=== PATIENT | female | born 1950 | race Caucasian/White ===

== ENCOUNTER → 2017-02-04 | Outpatient (CLI) | payer OTHER | LOC: BMCIMAGING 16:00 | PROVIDERS: ATTEND Internal Medicine | DX: M51.36 Other intervertebral disc degeneration, lumbar region (principal) ==

== ENCOUNTER → 2017-03-12 | Outpatient (CLI) | payer OTHER | LOC: FIMAGING 07:40 | PROVIDERS: ATTEND Internal Medicine | DX: Z12.31 Encounter for screening mammogram for malignant neoplasm of breast (principal) | CPT/HCPCS: G0202 ==

== ENCOUNTER → 2017-09-06 | Outpatient (CLI) | payer OTHER | LOC: BIMAGING 15:22 | PROVIDERS: ATTEND Internal Medicine | DX: R07.9 Chest pain, unspecified (principal); R53.81 Other malaise ==

== ENCOUNTER 2018-09-26 16:16 | Inpatient (IN) | payer OTHER ==
[2018-09-26] MEDS ORDERED: IPRATROPIUM/ALBUTEROL 3 ML DEYVIAL ONE (16:24)
[2018-09-26] MEDS ORDERED: NS 1,000 ML IV ONE (16:39)
[2018-09-26] MEDS ORDERED: ACETAMINOPHEN 325 MG TAB PO ONE (16:39)
--- NOTE | 2018-09-26 16:42 | EDPHY ---
H & P Time Seen by Provider: 09/26/18 16:24 HPI/ROS: CHIEF COMPLAINT: Shortness of breath, fever HISTORY OF PRESENT ILLNESS: 68-year-old female with rheumatoid arthritis on methotrexate presents with shortness of breath and fever. Onset of headache and shortness of breath 1 week ago. She saw her primary care provider 5 days ago who prescribed Augmentin for possible sinusitis. Shortness of breath has gradually increased and now is quite short of breath at rest. Associated with a frequent dry cough, fever and moderate myalgias. Vomited once yesterday. Headache is moderate. No runny nose or nasal congestion. REVIEW OF SYSTEMS: complete 10 point ROS reviewed and is negative except for the noted elements in the HPI - Personal History Current Tetanus Diphtheria and Acellular Pertussis (TDAP): Yes - Medical/Surgical History Hx Asthma: No Hx Chronic Respiratory Disease: No Hx Diabetes: No Hx Cardiac Disease: No Hx Renal Disease: No Hx Cirrhosis: No Hx Alcoholism: No Hx HIV/AIDS: No Hx Splenectomy or Spleen Trauma: No Other PMH: RA, - Social History Smoking Status: Never smoked Alcohol Use: Sober Drug Use: None Additional Social History: - Physical Exam Exam: General Appearance: Alert, pleasant and talkative, nontoxic appearing Eyes: Pupils equal and round, no conjunctival pallor or injection ENT, Mouth: Mucous membranes moist Neck: Normal inspection Respiratory: Tachypnea, rales at the left base Cardiovascular: Regular tachycardia Gastrointestinal: Abdomen is soft and nontender Neurological: A&O, nonfocal, normal gait Skin: Warm and dry Extremities: Nontender, no pedal edema Psychiatric: Mood and affect normal Constitutional: Initial Vital Signs Temperature (C) 39.4 C H 09/26/18 16:24 Heart Rate 126 H 18 16:24 Respiratory Rate 24 H 09/26/18 16:24 Blood Pressure 158/73 H 18 16:24 O2 Sat (%) 79 L 09/26/18 16:24 O2 Delivery Mode Room Air O2 (L/minute) 3 Allergies/Adverse Reactions: erythromycin base Allergy (Unknown, Verified 09/26/18 17:41) Abdominal Cramping Home Medications: Medication Instructions Recorded Cholecalciferol Vit D3 [Vitamin D3 1,000 units PO DAILY 09/26/18 (*)] Diazepam [Valium 5 MG (*)] 5 mg PO DAILY PRN 09/26/18 Estrogens,Conjugated [Premarin 0.3 0.3 mg PO DAILY 09/26/18 MG (*)] Etanercept [Enbrel] 50 mg SQ MO 09/26/18 Folic Acid [Folic Acid 1 MG (*)] 3 mg PO DAILY 09/26/18 Herbals/Supplements -Info Only 1 ea PO DAILY 09/26/18 Methotrexate Sodium/Pf 0.9 ml SQ MO 09/26/18 [Methotrexate 25 mg/ml Vial] Potassium Citrate [Urocit-K 10meq 40 meq PO DAILY 09/26/18 (*)] Progesterone,Micronized 100 mg PO DAILY 09/26/18 [Prometrium] Propranolol HCl [Inderal 20mg (*)] 20 mg PO DAILY PRN 09/26/18 traZODone [traZODONE 50MG (*)] 50 mg PO HS PRN 09/26/18 Medical Decision Making - Diagnostics Imaging Results: Imaging Impressions Chest X-Ray 09/26/18 16:32 Impression: 1. Findings suggestive of mild to moderate fluid overload/CHF. Imaging: I viewed and interpreted images myself ED Course/Re-evaluation: This patient presents with severe hypoxia and a flu-like illness, likely pneumonia. On arrival, she was placed on oxygen by nasal cannula and oxygen saturation quickly kadi up to 96%. Initial blood pressure is normal. She meets SIRS criteria because of fever, heart rate and respiratory rate. Initial lactate is 3.4. Severe sepsis protocol initiated and IVF 2 L given. Chest x- ray reveals bilateral lower lobe infiltrates, consistent with bilateral pneumonia. Allergy to erythromycin discussed with the patient. Erythromycin causes abdominal pain, no true allergic reaction. Options discussed with patient, she prefers Levaquin, as she has tolerated Levaquin in the past. I reviewed the drug interactions between methotrexate, Enbrel and Levaquin; no significant drug interactions. Levaquin 750 mg IV given after blood cultures drawn. Zofran 4 mg IV given for nausea. The hospitalist service was consulted for admission. 6:00 p.m.-I reviewed the x-ray report by the radiologist. Clinically, this patient presents with bilateral pneumonia and I do not suspect that she has fluid overload. She is quite better after fever reduction and IV fluids. BP 136/82, HR 90's. O2 sat 94% on 3l NC. 7pm: repeat lactate 1.4, continues to feel better. Vital signs 135/64, HR 88. Differential Diagnosis: Differential diagnosis includes pyelonephritis, cholecystitis, influenza, cellulitis, pneumonia, abscess, meningitis. - Data Points Laboratory Results: Laboratory Results 09/26/18 16:30 09/26/18 16:30 09/26/18 09/26/18 09/26/18 16:50 16:30 16:30 WBC RBC Hgb Hct MCV MCH MCHC RDW Plt Count MPV Neut % (Auto) Lymph % (Auto) [place] % (Auto) Eos % (Auto) Baso % (Auto) Nucleat RBC Rel Count Absolute Neuts (auto) Absolute Lymphs (auto) Absolute Monos (auto) Absolute Eos (auto) Absolute Basos (auto) Absolute Nucleated RBC Immature Gran % Immature Gran # VBG Lactic Acid 3.5 mmol/L H mmol/L (0.7-2.1) Sodium Potassium Chloride Carbon Dioxide Anion Gap BUN Creatinine Estimated GFR Glucose Calcium Procalcitonin Pending Nasal Influenza A PCR NEGATIVE FOR FLU A (NEGATIVE) Nasal Influenza B PCR NEGATIVE FOR FLU B (NEGATIVE) 09/26/18 09/26/18 16:30 16:30 WBC 9.35 10^3/uL 10^3/uL (3.80-9.50) RBC 4.85 10^6/uL 10^6/uL (4.18-5.33) Hgb 15.3 g/dL g/dL (12.6-16.3) Hct 44.5 % % (38.0-47.0) MCV 91.8 fL fL (81.5-99.8) MCH 31.5 pg pg (27.9-34.1) MCHC 34.4 g/dL g/dL (32.4-36.7) RDW 12.9 % % (11.5-15.2) Plt Count 246 10^3/uL 10^3/uL (150-400) MPV 9.2 fL fL (8.7-11.7) Neut % (Auto) 76.3 % H % (39.3-74.2) Lymph % (Auto) 13.3 % L % (15.0-45.0) [place] % (Auto) 8.2 % % (4.5-13.0) Eos % (Auto) 1.3 % % (0.6-7.6) Baso % (Auto) 0.5 % % (0.3-1.7) Nucleat RBC Rel Count 0.0 % % (0.0-0.2) Absolute Neuts (auto) 7.13 10^3/uL H 10^3/uL (1.70-6.50) Absolute Lymphs (auto) 1.24 10^3/uL 10^3/uL (1.00-3.00) Absolute Monos (auto) 0.77 10^3/uL 10^3/uL (0.30-0.80) Absolute Eos (auto) 0.12 10^3/uL 10^3/uL (0.03-0.40) Absolute Basos (auto) 0.05 10^3/uL 10^3/uL (0.02-0.10) Absolute Nucleated RBC 0.00 10^3/uL 10^3/uL (0-0.01) Immature Gran % 0.4 % % (0.0-1.1) Immature Gran # 0.04 10^3/uL 10^3/uL (0.00-0.10) VBG Lactic Acid Sodium 130 mEq/L L mEq/L (135-145) Potassium 4.1 mEq/L mEq/L (3.5-5.2) Chloride 102 mEq/L mEq/L (97-110) Carbon Dioxide 19 mEq/l L mEq/l (22-31) Anion Gap 9 mEq/L mEq/L (6-14) BUN 22 mg/dL mg/dL (7-23) Creatinine 0.7 mg/dL mg/dL (0.6-1.0) Estimated GFR > 60 Glucose 120 mg/dL H mg/dL (70-100) Calcium 9.0 mg/dL mg/dL (8.5-10.4) Procalcitonin Nasal Influenza A PCR Nasal Influenza B PCR Medications Given: Lorazepam (Ativan) 0.5 - 1 mg PO Q8HRS PRN PRN Reason: Anxiety, Able to Take PO Stop: 03/25/19 18:26 Last Admin: 09/26/18 18:53 Dose: 1 mg Ondansetron HCl (Zofran) 4 mg IVP Q4HRS PRN PRN Reason: Nausea/Vomiting, Can't Take PO Stop: 03/25/19 18:26 Last Admin: 09/26/18 18:52 Dose: 4 mg Discontinued Medications Acetaminophen (Tylenol) 650 mg PO EDNOW ONE Stop: 09/26/18 16:40 Last Admin: 09/26/18 16:51 Dose: 650 mg Sodium Chloride (Ns) 1,000 mls @ 0 mls/hr IV ONCE ONE; Wide Open PRN Reason: Protocol Stop: 09/26/18 16:40 Last Admin: 09/26/18 16:53 Dose: 1,000 mls Sodium Chloride (Ns) 2,000 mls @ 4,000 mls/hr 30 ml/kg infuse over 30 min ( 2000 ml) IV EDNOW ONE PRN Reason: Protocol Stop: 09/26/18 17:25 Last Admin: 09/26/18 17:15 Dose: 2,000 mls Levofloxacin/Dextrose (Levaquin 750 Mg (Premix)) 150 mls @ 100 mls/hr IV EDNOW ONE PRN Reason: Protocol Stop: 09/26/18 18:32 Last Admin: 09/26/18 17:14 Dose: 150 mls Ondansetron HCl (Zofran) 4 mg IVP EDNOW ONE Stop: 09/26/18 17:10 Last Admin: 09/26/18 17:21 Dose: 4 mg Departure - Departure Disposition: [facility] Inpatient Acute Clinical Impression: Pneumonia Qualifiers: Pneumonia type: due to unspecified organism Laterality: bilateral Lung location : lower lobe of lung Qualified Code(s): J18.1 - Lobar pneumonia, unspecified organism Condition: Serious
[2018-09-26 16:52] LABS: PLATELET COUNT 246 10^3/uL (150-400)
[2018-09-26] MEDS ORDERED: NS 2,000 ML IV ONE (16:56)
[2018-09-26] MEDS ORDERED: ONDANSETRON 4 MG/2 ML VIAL IVP ONE (17:09)
[2018-09-26] MEDS ORDERED: ALBUTEROL 60 PUFFS/8 GM MDI IH PRN (18:27)
[2018-09-26] MEDS ORDERED: oxyCODONE IR 5 MG TAB PO PRN (18:27)
[2018-09-26] MEDS ORDERED: NS 1,000 ML IV SCH (18:30)
[2018-09-26] MEDS ORDERED: PROPRANOLOL HCL 20 MG TAB PO PRN (18:32)
[2018-09-26] MEDS ORDERED: traZODone 50 MG TAB PO PRN (18:32)
[2018-09-26] MEDS ORDERED: ONDANSETRON 4 MG/2 ML VIAL ONE (18:45)
[2018-09-26] MEDS ORDERED: LORazepam 1 MG TAB ONE (18:46)
[2018-09-26] MEDS: ONDANSETRON 4 MG/2 ML VIAL IVP PRN (18:52)
[2018-09-26] MEDS: LORazepam 0.5 MG TAB PO PRN (18:53)
--- NOTE | 2018-09-26 19:57 | PDGENHP ---
History and Physical - Chief Complaint shortness of breath - History of Present Illness 68yo F with history of rheumatoid arthritis on methotrexate and etanercept here with six days of worsening shortness of breath. This has been associated with fevers/chills for the last three days as well as non-productive cough and myalgias. She overall feels miserable. Also had an episode of vomiting and several loose stools yesterday. She went to her PCP earlier in the week who prescribed augmentin for presumed sinusitis but her symptoms continued to worsen despite her taking this. She is a non-smoker. No recent travel. Went to green party 2 weeks ago with lots of people, maybe some sick contacts. On presentation to the ED, her oxygen saturation was found to be 79% while breathing room air. This improved with supplemental oxygen. CXR showed likely pneumonia and she was given a dose of levofloxacin and is being admitted. Case discussed with ED physician Chen Sanchez. History Information - Allergies/Home Medication List Allergies/Adverse Reactions: erythromycin base Allergy (Unknown, Verified 09/26/18 17:41) Abdominal Cramping Home Medications: Cholecalciferol Vit D3 [Vitamin D3 (*)] 1,000 units PO DAILY 09/26/18 [Last Taken Unknown] Diazepam [Valium 5 MG (*)] 5 mg PO DAILY PRN 09/26/18 [Last Taken Unknown] Estrogens,Conjugated [Premarin 0.3 MG (*)] 0.3 mg PO DAILY 09/26/18 [Last Taken Unknown] Etanercept [Enbrel] 50 mg SQ MO 09/26/18 [Last Taken 1 Week Ago ~09/19/18] Folic Acid [Folic Acid 1 MG (*)] 3 mg PO DAILY 09/26/18 [Last Taken Unknown] Herbals/Supplements -Info Only 1 ea PO DAILY 09/26/18 [Last Taken Unknown] Methotrexate Sodium/Pf [Methotrexate 25 mg/ml Vial] 0.9 ml SQ MO 09/26/18 [Last Taken 1 Week Ago ~09/19/18] Potassium Citrate [Urocit-K 10meq (*)] 40 meq PO DAILY 09/26/18 [Last Taken Unknown] Progesterone,Micronized [Prometrium] 100 mg PO DAILY 09/26/18 [Last Taken Unknown] Propranolol HCl [Inderal 20mg (*)] 20 mg PO DAILY PRN 09/26/18 [Last Taken Unknown] traZODone [traZODONE 50MG (*)] 50 mg PO HS PRN 09/26/18 [Last Taken Unknown] I have personally reviewed and updated: family history, medical history, social history, surgical history - Past Medical History Additional medical history: rheumatoid arthritis, anxiety - Surgical History Reports: no pertinent surgical hx - Family History Positive for: non-pertinent - Social History Smoking Status: Never smoked Alcohol Use: None Drug Use: None Additional social history: Lives with , independent in ADLs Review of Systems Review of Systems: ROS: 10pt was reviewed & negative except for what was stated in HPI & below Physical Exam Physical Exam: Temp Pulse Resp BP Pulse Ox 36.9 C 90 20 135/64 H 94 09/26/18 19:26 09/26/18 19:26 09/26/18 19:26 09/26/18 19:26 09/26/18 19:26 O2 (L/minute) 4 Constitutional: appears nourished, uncomfortable Eyes: PERRL, anicteric sclera, EOMI Ears, Nose, Mouth, Throat: no oral mucosal ulcers, dry mucous membranes Cardiovascular: regular rate and rhythym, no murmur, rub, or gallop, No edema Respiratory: no respiratory distress, reduced air movement, rhonchi (bilateral bases), No expiratory wheeze Gastrointestinal: normoactive bowel sounds, soft, non-tender abdomen, no palpable masses Genitourinary: no bladder fullness, no bladder tenderness Skin: warm, normal color, no rashes or abrasions, no fluctuance, no induration, No mottled Musculoskeletal: full muscle strength, no muscle tenderness, normal joint ROM, no joint effusions Neurologic: AAOx3 Psychiatric: interacting appropriately, not anxious, not encephalopathic, thought process linear Lab Data & Imaging Review 09/26/18 16:30 09/26/18 16:30 WBC 9.35 10^3/uL (3.80-9.50) 09/26/18 16:30 RBC 4.85 10^6/uL (4.18-5.33) 09/26/18 16:30 Hgb 15.3 g/dL (12.6-16.3) 09/26/18 16:30 Hct 44.5 % (38.0-47.0) 09/26/18 16:30 MCV 91.8 fL (81.5-99.8) 09/26/18 16:30 MCH 31.5 pg (27.9-34.1) 09/26/18 16:30 MCHC 34.4 g/dL (32.4-36.7) 09/26/18 16:30 RDW 12.9 % (11.5-15.2) 09/26/18 16:30 Plt Count 246 10^3/uL (150-400) 09/26/18 16:30 MPV 9.2 fL (8.7-11.7) 09/26/18 16:30 Neut % (Auto) 76.3 % (39.3-74.2) H 09/26/18 16:30 Lymph % (Auto) 13.3 % (15.0-45.0) L 09/26/18 16:30 [place] % (Auto) 8.2 % (4.5-13.0) 09/26/18 16:30 Eos % (Auto) 1.3 % (0.6-7.6) 09/26/18 16:30 Baso % (Auto) 0.5 % (0.3-1.7) 09/26/18 16:30 Nucleat RBC Rel Count 0.0 % (0.0-0.2) 09/26/18 16:30 Absolute Neuts (auto) 7.13 10^3/uL (1.70-6.50) H 09/26/18 16:30 Absolute Lymphs (auto) 1.24 10^3/uL (1.00-3.00) 09/26/18 16:30 Absolute Monos (auto) 0.77 10^3/uL (0.30-0.80) 09/26/18 16:30 Absolute Eos (auto) 0.12 10^3/uL (0.03-0.40) 09/26/18 16:30 Absolute Basos (auto) 0.05 10^3/uL (0.02-0.10) 09/26/18 16:30 Absolute Nucleated RBC 0.00 10^3/uL (0-0.01) 09/26/18 16:30 Immature Gran % 0.4 % (0.0-1.1) 09/26/18 16:30 Immature Gran # 0.04 10^3/uL (0.00-0.10) 09/26/18 16:30 VBG Lactic Acid 1.4 mmol/L (0.7-2.1) 09/26/18 18:00 Sodium 130 mEq/L (135-145) L 09/26/18 16:30 Potassium 4.1 mEq/L (3.5-5.2) 09/26/18 16:30 Chloride 102 mEq/L (97-110) 09/26/18 16:30 Carbon Dioxide 19 mEq/l (22-31) L 09/26/18 16:30 Anion Gap 9 mEq/L (6-14) 09/26/18 16:30 BUN 22 mg/dL (7-23) 09/26/18 16:30 Creatinine 0.7 mg/dL (0.6-1.0) 09/26/18 16:30 Estimated GFR > 60 09/26/18 16:30 Glucose 120 mg/dL (70-100) H 09/26/18 16:30 Calcium 9.0 mg/dL (8.5-10.4) 09/26/18 16:30 NT-Pro-B Natriuret Pep 404 pg/mL (0-125) H 09/26/18 18:00 Procalcitonin 0.13 ng/mL (0.02-0.10) H 09/26/18 16:30 Nasal Influenza A PCR NEGATIVE FOR FLU A (NEGATIVE) 09/26/18 16:50 Nasal Influenza B PCR NEGATIVE FOR FLU B (NEGATIVE) 09/26/18 16:50 Visualized and Interpreted Chest x-ray results: Yes Visualized and Interpreted imaging results: Yes Interpretation: CXR: bilateral predominantly lower lobe interstitial infiltrates (interp by me) Assessment & Plan Assessment: 68yo F with history of rheumatoid arthritis on methotrexate and etanercept here with six days of worsening shortness of breath found to be hypoxic with suspected pneumonia and meeting severe sepsis criteria. Plan: 1. Severe sepsis: With elevated HR, tachypnea, fever and elevated lactate. BP stable. - Blood cultures drawn, continue IVF, repeat lactate down, antibiotics 2. Community acquired pneumonia: Bilateral lower lobe interstitial process. Could be atypical bacterial vs viral. She is immunocompromised. Alternatively, this could represent RA-associated ILD however her constitutional symptoms point towards infection. - Levofloxacin IV 750mg daily (has allergy to macrolides) - If worsens, would broaden antibiotics and consult pulm for consideration for bronchoscopy - Check legionella, strep pneumo urine antigens and respiratory viral PCR 3. Acute hypoxemic respiratory failure: As evidenced by tachypnea and respiratory distress. Stable on 3-4 but quickly desaturates without. - Antibiotics/management per above, wean O2 as tolerates 4. Hyponatremia: Suspect hypovolemic/poor PO. - IVF and recheck in AM 5. Rheumatoid arthritis: Gets intermittent methotrexate and etanercept injections. VTE ppx: LMWH Code: full Dispo: Admit as inpatient
[2018-09-27] MEDS: LORazepam 0.5 MG TAB PO PRN (03:43)
[2018-09-27 04:09] LABS: PLATELET COUNT 242 10^3/uL (150-400)
[2018-09-27] MEDS: FOLIC ACID 1 MG TAB PO SCH (07:43)
[2018-09-27] MEDS: ENOXAPARIN 40 MG/0.4 ML SYR SC SCH (07:43)
[2018-09-27] MEDS: ACETAMINOPHEN 325 MG TAB PO PRN ×2 (07:47→15:55)
--- NOTE | 2018-09-27 09:13 | ASMTCMCOM ---
CM Note CM Note Notes: 68yo female admitted for SOB, PNA, Severe sepsis, Hypoxic respiratory failure. She has a Hx of RA and Anxiety. She lives with her in [place]. CM not anticipating that patient will have discharge needs. Date Signed: 09/27/2018 09:13 AM Electronically Signed By:Amy Ren LCSW
[2018-09-27] MEDS ORDERED: guaiFENesin 600 MG TAB.ER PO SCH (11:15)
--- NOTE | 2018-09-27 11:15 | HOSPPROG ---
Hospitalist Progress Note Assessment/Plan: Severe sepsis: Sepsis physiology improving, lactate normalized. BCx's pending -cont atbx, supportive care -dc ivf's CAP: ?bacterial vs viral. RVP neg. She is immunocompromised. Also consider RA- associated ILD though clinical picture c/w infection - Levofloxacin IV 750mg daily (allergy to macrolides) - add albuterol nebs, mucines - legionella, strep pneumo urine antigens pending - will d/w pulm given immunocompromised status on mtx AHRF: 4 LPM - atbx, supportive care as above - wean O2 as able Hyponatremia: likely hypovolemic. Na normal today after IVF's overnight. RA - hold methotrexate and etanercept during acute illness VTE ppx: LMWH Code: full Dispo: Admit as inpatient Subjective: Pt feels a little better. Still coughing and SOB. Had another fever this am. No CP. Appetite decreased, but taking good amt of liquids Objective: Vital Signs Temp Pulse Resp BP Pulse Ox 36.6 C 92 16 140/71 H 94 09/27/18 09:34 09/27/18 07:16 09/27/18 07:16 09/27/18 07:16 09/27/18 07:16 Laboratory Results 09/27/18 04:00 09/27/18 04:00 09/26/18 09/27/18 09/28/18 05:59 05:59 05:59 Intake Total 2150 Output Total 1600 Balance 550 - Physical Exam Constitutional: no apparent distress Eyes: PERRL Ears, Nose, Mouth, Throat: moist mucous membranes Cardiovascular: regular rate and rhythym Respiratory: no respiratory distress, inspiratory crackles Gastrointestinal: normoactive bowel sounds, soft, non-tender abdomen Skin: warm Musculoskeletal: full muscle strength Neurologic: AAOx3 Psychiatric: interacting appropriately ICD10 Worksheet Patient Problems: Problems Problem Status Onset Pneumonia Acute
[2018-09-27] MEDS: ALBUTEROL 3 ML DEYVIAL IH SCH ×2 (11:42→15:08)
[2018-09-27] MEDS ORDERED: IOPAMIDOL (ISOVUE 370) 100 ML BTL IV ONE (14:08)
[2018-09-27] MEDS: GUAIFENESIN/DM 10 ML UDCUP PO PRN (15:58)
[2018-09-27] MEDS: IPRATROPIUM/ALBUTEROL 3 ML DEYVIAL IH SCH ×2 (15:58→21:30)
--- NOTE | 2018-09-27 16:20 | PDCONSULT ---
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 Initial viral PCR was negative however this was improperly performed. Drug related pneumonitis from methotrexate as well as Enbrel are possible possible but less likely given infectious symptoms. PJP is also on the differential given immunosuppression but less likely. # acute hypoxemic respiratory failure # viral pneumonitis/pneumonia # rheumatoid arthritis on methotrexate and Enbrel # fevers # lactic acidosis, secondary to dehydration resolved PLAN # repeat respiratory viral respiratory PCR # okay to continue Levaquin # if viral PCR is negative and patient is worsening will proceed with bronchoscopy for BAL and possible biopsy # the patient has increasing oxygen needs, suggest high-flow nasal cannula # hold methotrexate and Enbrel # NPO after midnight, hold Lovenox tonight CONSULT I was asked by Dr. Remedios Mccain of [facility] to evaluate this patient for acute hypoxemic respiratory failure and pneumonia Chief complaint Shortness of breath HPI 68-year-old female with rheumatoid toilet arthritis on methotrexate and recently started 07/04/2018 on in [facility] who was admitted with increasing shortness of breath and hypoxemic respiratory failure. 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 His she complains of 10 days of nasal congestion and sore throat and generalized fatigue. Over the last 3 days she developed fevers and chills and wore worsening nonproductive cough as well as shortness of breath. She had 1-2 episodes of vomiting loose stool yesterday. Ten days prior she was given a course of Augmentin without improvement symptoms. Around the time of her symptoms she was at a [place] party with visitors from across [place] which she does not recall any direct sick contacts. She has had an ongoing headaches since starting Enbrel in July. She has not been on steroids since June. She denies syncope, chest pain, leg swelling , new rashes. Allergies Erythromycin Home medication Vitamin-D, Valium as needed, Enbrel, methotrexate 9 mg subcu weekly, trazodone as needed, propranolol as needed Past medical history Anxiety, rheumatoid arthritis Family history no history of viral pneumonitis Social history Lives with in [facility] nonsmoker exercises daily as a active nor 6 year Review of systems Insert review of systems Vitals Temperature 102 degrees, pulse 88, blood pressure 102/76, respiratory rate 18 92 % on 4 L nasal cannula GEN: Mild respiratory distress, lying in bed NEURO: A&Ox3, CN 2-12 GI HEENT: PERRL, EOMI, MMM, OP clear, face mask in place NECK: supple, trachea midline CHEST normal shape, no pes excavatum CVS: rrr no m/r/g PULM: CTA B, no wheezes/rales/rhonchi ABD: soft, NT, ND, NABS EXT: no swelling, no cyanosis, full ROM SKIN: warm, dry, intact, no rash PSYCH CAM negative, appropriate affect Data I personally reviewed interpreted radiographic images well as formal radiology reads at 09/26/2018 chest [id number] increased interstitial markings worse at the bases normal cardiac silhouette 09/27/2018 CTA chest no PE, diffuse patchy ground-glass opacities, no pneumothorax, no nodules.
[2018-09-27] MEDS: ONDANSETRON DISINTEGRATING 4 MG TAB PO PRN (20:07)
[2018-09-27] MEDS: diphenhydrAMINE 25 MG CAP PO PRN (20:08)
[2018-09-27] MEDS: guaiFENesin 600 MG TAB.ER PO SCH (20:08)
[2018-09-28] MEDS: IPRATROPIUM/ALBUTEROL 3 ML DEYVIAL IH SCH ×3 (06:57→16:31)
[2018-09-28] MEDS: guaiFENesin 600 MG TAB.ER PO SCH ×2 (08:36→20:18)
[2018-09-28] MEDS: FOLIC ACID 1 MG TAB PO SCH (08:36)
[2018-09-28] MEDS: ALBUTEROL 3 ML DEYVIAL IH PRN (08:40)
[2018-09-28] MEDS ORDERED: NS 500 ML IV ONE (09:58)
[2018-09-28] MEDS ORDERED: ALBUTEROL 3 ML DEYVIAL IH ONE (09:58)
[2018-09-28] MEDS ORDERED: ALBUTEROL 3 ML DEYVIAL ONE (10:35)
[2018-09-28] MEDS ORDERED: MIDAZOLAM 2 MG/2 ML VIAL ONE (10:35)
[2018-09-28] MEDS ORDERED: LIDOCAINE 1% 300 MG/30 ML SDV ONE (10:35)
[2018-09-28] MEDS ORDERED: EPINEPHrine 1 MG/ML INJ ONE (10:36)
[2018-09-28] MEDS ORDERED: fentaNYL 100 MCG/2 ML INJ ONE (10:36)
--- NOTE | 2018-09-28 11:04 | PDMN ---
Medical Necessity Medical necessity: Pt meets IP criteria as of 09/26/2018 per MD and MCG M-160 ( Sepsis); est los > 2 mn for ongoing tx and management of severe sepsis ( tachycardia, tachypnea, fever, hypoxia, elevated lactate) secondary to pneumonia in and immunocompromised pt; requiring IV ABX, respiratory support, serial labs, and IVF.
--- NOTE | 2018-09-28 11:18 | PDPROPOC ---
Sedation Plan of Care Sedation Plan of Care: mental status noted ASA Classification: ASA 3 Planned drugs: fentanyl, midazolam Mallampati Score: Class 1 Mallampati Reference Image: Patient passed 3-3-2 rule?: Yes
[2018-09-28] MEDS: diphenhydrAMINE 25 MG CAP PO PRN (11:32)
--- NOTE | 2018-09-28 11:33 | PDINTPN ---
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 However resp viral PCR negative and interval worsening on levaquin. Concern for PJP vs atypical pna. Drug related pneumonitis from methotrexate as well as Enbrel are possible possible but less likely given infectious symptoms. Other viral etiologies including HSV, VZV and CMV less likely # acute hypoxemic respiratory failure # pneumonia # possible PJP # rheumatoid arthritis on methotrexate and Enbrel # fevers # lactic acidosis, secondary to dehydration resolved PLAN # bronchoscopy with transbronchial biopsies now # after bronch, start empiric PJP treatment with bactrim and adjunctive steroids until silver stain results # add azithro and CTX to cover for atypical CAP in setting of severe illness # stop levoquin given interval worsening # steroids will also treat any atypical drug induced pneumonitis # will place on HFNC after procedure, may need intubation and mechanical ventilation in not improving # the patient has increasing oxygen needs, suggest high-flow nasal cannula # hold methotrexate and Enbrel # restart lovenox Imaging I reviewed interpreted patient's radiographic images well as formal radiology reads 09/27/2018 CT chest-diffuse patchy ground-glass opacifications. No nodules, no PE, no dense opacification 09/28/2018 chest x-ray with interval worsening of diffuse interstitial parenchymal opacification Subjective: Interval worsening overnight. Increasing oxygen requirements. Worsening shortness of breath, worsening fatigue, worsening chills. Mild nausea and malaise. No chest pain no syncope, no leg swelling Objective: Vital Signs Temp Pulse Resp BP Pulse Ox 35.8 C L 92 20 135/72 H 97 09/28/18 11:14 09/28/18 11:14 09/28/18 11:14 09/28/18 11:14 09/28/18 11:14 Microbiology 09/27/18 15:30 Respiratory Panel (PCR) - Final Nasal, Sinus - [place] Viral Transport No Organism Detected By Pcr Laboratory Results 09/27/18 04:00 09/27/18 04:00 09/27/18 09/28/18 09/29/18 05:59 05:59 05:59 Intake Total 2150 2300 Output Total 1600 2200 Balance 550 100 Physical Exam - Physical Exam General Appearance: moderate distress EENT: PERRL/EOMI, normal ENT inspection Neck: non-tender, full range of motion Respiratory: respiratory distress, No crackles Cardiac/Chest: normal peripheral pulses, regular rate, rhythm, No edema Abdomen: normal bowel sounds, non-tender Skin: normal color, warm/dry Neuro/Psych: no motor/sensory deficits, alert, normal mood/affect, oriented x 3 ICD10 Worksheet Patient Problems: Problems Problem Status Onset Pneumonia Acute
[2018-09-28] MEDS ORDERED: OXYMETAZOLINE 30 ML NASAL SPRAY ONE (11:41)
[2018-09-28] MEDS ORDERED: LIDOCAINE 2% JELLY 20 ML (UROJECT) UR ONE (11:45)
[2018-09-28] MEDS ORDERED: LIDOCAINE 2% JELLY 20 ML (UROJECT) ONE (11:50)
[2018-09-28] MEDS: methylPREDNISolone SOD SUCC 40 MG/ML VIAL IVP SCH ×3 (12:15→22:12)
[2018-09-28] MEDS: TMP IV SCH ×2 (12:50→20:31)
[2018-09-28] MEDS: SULFAMETHOX IV SCH ×2 (12:50→20:31)
[2018-09-28] MEDS: D5W IV SCH ×2 (12:50→20:31)
--- NOTE | 2018-09-28 13:16 | HOSPPROG ---
Hospitalist Progress Note Assessment/Plan: Severe sepsis: Sepsis physiology improving, lactate normalized. BCx's NGTD. -cont atbx as below AHRF: 2/2 PNA / possible PCP, s/p bronch. Required 4 LPM on arrival, now on Vapotherm post-bronch at 35 LPM - atbx as below - follow culture data - wean O2 as able Diffuse b/l infiltrates: ?bacterial vs viral infection. RVP neg. She is immunocompromised, thus PCP is a consideration. Also consider RA-associated ILD though clinical picture more c/w infection. Drug induced pneumonitis also possible. She has felt poorly since starting Enbrel. - atbx changed to ceftriaxone/azithro per pulm, got worse on levaquin - bactrim plus steroids added to cover for PCP - steroids will also cover for possible drug reaction - cont albuterol nebs, mucinex - legionella, strep pneumo urine antigens pending - appreciate pulmonology assistance Hyponatremia: likely hypovolemic. Na normalized RA - holding methotrexate and etanercept during acute illness VTE ppx: LMWH Code: full Dispo: Admit as inpatient, transfer to Subjective: Pt feels terrible. Coughing frequently, fatigued, SOB. Post- bronch she is on 35 L vapotherm. No fevers. Poor appetite. Objective: Vital Signs Temp Pulse Resp BP Pulse Ox 36.8 C 86 21 H 129/61 H 98 09/28/18 12:52 09/28/18 12:52 09/28/18 12:52 09/28/18 12:52 09/28/18 12:52 Microbiology 09/27/18 15:30 Respiratory Panel (PCR) - Final Nasal, Sinus - [place] Viral Transport No Organism Detected By Pcr Laboratory Results 09/27/18 04:00 09/27/18 04:00 09/27/18 09/28/18 09/29/18 05:59 05:59 05:59 Intake Total 2150 2300 350 Output Total 1600 2200 Balance 550 100 350 - Physical Exam Constitutional: no apparent distress Eyes: PERRL Ears, Nose, Mouth, Throat: moist mucous membranes Cardiovascular: regular rate and rhythym Respiratory: no respiratory distress, inspiratory crackles Gastrointestinal: normoactive bowel sounds, soft, non-tender abdomen Skin: warm Musculoskeletal: full muscle strength Neurologic: AAOx3 Psychiatric: interacting appropriately ICD10 Worksheet Patient Problems: Problems Problem Status Onset Pneumonia Acute
[2018-09-28] MEDS: AZITHROMYCIN IV 500 MG in NS 250 ML IV SCH (14:45)
[2018-09-28] MEDS: ACETAMINOPHEN 325 MG TAB PO PRN (17:46)
[2018-09-28] MEDS: IPRATROPIUM/ALBUTEROL 3 ML DEYVIAL IH PRN (19:21)
[2018-09-28] MEDS: LORazepam 0.5 MG TAB PO PRN (20:17)
[2018-09-29] MEDS: ALBUTEROL 3 ML DEYVIAL IH PRN ×2 (03:20→14:10)
[2018-09-29] MEDS: D5W IV SCH ×3 (03:38→19:55)
[2018-09-29] MEDS: SULFAMETHOX IV SCH ×3 (03:38→19:55)
[2018-09-29] MEDS: TMP IV SCH ×3 (03:38→19:55)
[2018-09-29] MEDS: ACETAMINOPHEN 325 MG TAB PO PRN ×3 (03:43→20:40)
[2018-09-29] MEDS: LORazepam 0.5 MG TAB PO PRN ×2 (04:19→20:37)
[2018-09-29] MEDS: methylPREDNISolone SOD SUCC 40 MG/ML VIAL IVP SCH ×3 (05:31→21:16)
[2018-09-29] MEDS: GUAIFENESIN/DM 10 ML UDCUP PO PRN ×4 (05:35→22:22)
[2018-09-29] MEDS: ONDANSETRON 4 MG/2 ML VIAL IVP PRN (08:16)
[2018-09-29] MEDS ORDERED: POLYETHYLENE GLYCOL 3350 17 GM PKT PO PRN (08:30)
[2018-09-29] MEDS ORDERED: LACTULOSE 20 GM/30 ML UDCUP PO PRN (08:30)
[2018-09-29] MEDS ORDERED: BISACODYL 10 MG SUPP PR PRN (08:30)
[2018-09-29] MEDS ORDERED: MAGNESIUM HYDROXIDE 30 ML UDCUP PO PRN (08:30)
--- NOTE | 2018-09-29 08:31 | HOSPPROG ---
Hospitalist Progress Note Assessment/Plan: Severe sepsis: Sepsis physiology resolved, lactate normalized. BCx's NGTD. -cont atbx as below AHRF: 2/2 PNA / possible PCP vs drug induced pneumonitis, s/p bronch. Required 4 LPM on arrival, now on Vapotherm post-bronch 35 LPM --> 25 LPM - atbx as below - follow culture data - wean O2 as able Diffuse b/l infiltrates: ?bacterial vs viral infection. RVP neg. She is immunocompromised, thus PCP is a consideration. Also consider RA-associated ILD though clinical picture more c/w infection. Drug induced pneumonitis also possible. She has felt poorly since starting Enbrel. - atbx changed to ceftriaxone/azithro per pulm, got worse on levaquin - bactrim plus steroids added to cover for PCP - steroids will also cover for possible drug reaction - cont albuterol nebs, mucinex - legionella, strep pneumo urine antigens pending - appreciate pulmonology assistance Hyponatremia: likely hypovolemic. Na normalized RA - holding methotrexate and etanercept during acute illness VTE ppx: LMWH Code: full Dispo: cont inpt, stepdown Subjective: Pt got some rest overnight. No fevers/chills. Coughed up a little mucus, very SOB with any activity. No CP. She is hungry, has had little appetite, but improving today. Objective: Vital Signs Temp Pulse Resp BP Pulse Ox 36.4 C 75 22 H 120/57 L 93 09/29/18 08:00 09/29/18 08:00 09/29/18 08:00 09/29/18 08:00 09/29/18 08:00 Microbiology 09/28/18 12:39 Mycobacterial Smear (RUBI) - Final Other - Other 09/28/18 12:39 Gram Stain - Final Bronchial Washing - Other Laboratory Results 09/27/18 04:00 09/27/18 04:00 09/28/18 09/29/18 09/30/18 05:59 05:59 05:59 Intake Total 2300 3213 Output Total 2200 200 Balance 100 3013 - Physical Exam Constitutional: no apparent distress Eyes: PERRL Ears, Nose, Mouth, Throat: moist mucous membranes Cardiovascular: regular rate and rhythym Respiratory: no respiratory distress, clear to auscultation Gastrointestinal: normoactive bowel sounds, soft, non-tender abdomen Skin: warm Musculoskeletal: full muscle strength Neurologic: AAOx3 Psychiatric: interacting appropriately ICD10 Worksheet Patient Problems: Problems Problem Status Onset Pneumonia Acute
[2018-09-29] MEDS: SENNOSIDES/DOCUSATE SODIUM TAB PO SCH ×2 (09:31→20:37)
[2018-09-29] MEDS: AZITHROMYCIN IV 500 MG in NS 250 ML IV SCH (09:31)
[2018-09-29] MEDS: ENOXAPARIN 40 MG/0.4 ML SYR SC SCH (09:31)
[2018-09-29] MEDS: PANTOPRAZOLE SODIUM 40 MG TAB PO SCH (09:31)
[2018-09-29] MEDS: FOLIC ACID 1 MG TAB PO SCH (09:32)
[2018-09-29] MEDS: guaiFENesin 600 MG TAB.ER PO SCH (09:32)
[2018-09-29] MEDS: IPRATROPIUM/ALBUTEROL 3 ML DEYVIAL IH PRN ×2 (12:26→18:13)
--- NOTE | 2018-09-29 17:17 | PDINTPN ---
Records Coordinator Progress Note Assessment/Plan: ASSESSMENT 68-year-old healthy female with rheumatoid arthritis on long standing methotrexate and recently started Enbrel presents with 10 days of increasing URI symptoms and shortness of breath most consistent with a viral prodrome. However resp viral PCR negative and interval worsening on levaquin. Concern for PJP vs atypical pna or other atypical infection. Drug related pneumonitis from methotrexate as well as Enbrel are possible possible but less likely given infectious symptoms. Other viral etiologies including HSV, VZV and CMV less likely # acute hypoxemic respiratory failure. Requiring high-flow nasal cannula # pneumonia versus pneumonitis. Status post bronchoscopy with BAL 09/29/2018. Unable to do transbronchial biopsies due to severe hypoxemic respiratory and high oxygen requirements. BAL fluid sent for PJP DFA, cytology for silver stain , mycoplasma PCR, AFB, fungal, and bacterial cultures. BAL fluid with many macrophages consistent with an adequate sample. Moderate amount of RBCs but no significant neutrophilia or lymphocytosis to suggest overt infection or cellular NSIP. Viral prodrome symptoms as above make drug related pneumonitis less likely. I discussed case with patient's vascular nurse on 09/29 who agrees with current plan. # possible PJP # rheumatoid arthritis on methotrexate and Enbrel # fevers # lactic acidosis, secondary to dehydration resolved PLAN # follow-up extensive BAL studies # case discussed with patient's primary vascular nurse on 08/30/2018 who agrees with current plan and thinks primary rheumatologic related lung disease is highly unlikely. # continue to hold methotrexate and Enbrel # continue Bactrim, azithromycin and ceftriaxone # Levaquin stopped 09/28/2018 given interval worsening # continue methylprednisolone 40 mg IV q.8 hours # steroids will also treat any atypical drug induced pneumonitis # continue high-flow nasal cannula, and avoid intubation unless clinically worsening # restart lovenox. # If bronch results with atypical organism will discuss with ID IMAGING I reviewed interpreted patient's radiographic images well as formal radiology reads 09/27/2018 CT chest-diffuse patchy ground-glass opacifications. No nodules, no PE, no dense opacification 09/28/2018 chest x-ray with interval worsening of diffuse interstitial parenchymal opacification 09/29/2018 chest x-ray with slight worsening of diffuse interstitial and parenchymal opacification Patient Services Assistant - Addy Vitale at [facility]. office [phone]. cell [phone] Patient is critically ill due to severe hypoxemic respiratory failure with worsening pulmonary opacifications in the setting of underlying immunosuppression Total critical care time 58 minutes LABS Subjective: Transferred to ICU for worsening respiratory symptoms. Bronched yesterday with BAL but TBBx unable to be safely performed due to hypoxemia and high oxygen requirements. Still SOB this AM and severe desaturations with movements. No n/v , syncope, chest pain. Objective: Vital Signs Temp Pulse Resp BP Pulse Ox 36.7 C 82 28 H 103/47 L 92 09/29/18 16:00 09/29/18 16:00 09/29/18 16:00 09/29/18 16:00 09/29/18 16:00 Microbiology 09/28/18 12:39 Gram Stain - Final Bronchial Washing - Other 09/28/18 12:39 Mycobacterial Smear (RUBI) - Final Other - Other Laboratory Results 09/27/18 04:00 09/27/18 04:00 09/28/18 09/29/18 09/30/18 05:59 05:59 05:59 Intake Total 2300 3213 Output Total 2200 200 850 Balance 100 3013 -850 ICD10 Worksheet Patient Problems: Problems Problem Status Onset Pneumonia Acute
[2018-09-29] MEDS: FAMOTIDINE 20 MG TAB PO SCH (20:37)
[2018-09-30] MEDS: TMP IV SCH (04:28)
[2018-09-30] MEDS: D5W IV SCH (04:28)
[2018-09-30] MEDS: SULFAMETHOX IV SCH (04:28)
[2018-09-30] MEDS: ALBUTEROL 3 ML DEYVIAL IH PRN (04:40)
[2018-09-30] MEDS: ACETAMINOPHEN 325 MG TAB PO PRN ×4 (05:33→21:12)
[2018-09-30] MEDS: methylPREDNISolone SOD SUCC 40 MG/ML VIAL IVP SCH (05:33)
[2018-09-30] MEDS: FOLIC ACID 1 MG TAB PO SCH (08:16)
[2018-09-30] MEDS: FAMOTIDINE 20 MG TAB PO SCH ×2 (08:17→21:12)
[2018-09-30] MEDS: GUAIFENESIN/DM 10 ML UDCUP PO PRN ×2 (08:17→18:03)
[2018-09-30] MEDS: SENNOSIDES/DOCUSATE SODIUM TAB PO SCH ×2 (08:17→21:11)
[2018-09-30] MEDS: ENOXAPARIN 40 MG/0.4 ML SYR SC SCH (08:17)
--- NOTE | 2018-09-30 08:30 | HOSPPROG ---
Hospitalist Progress Note Assessment/Plan: #Severe sepsis: from Mycoplasma pneumonia #AHRF: PNA vs pneumonitis. Mycoplasma IgM positive, but PCR negative. Received adequate treatment with Azithro -Vapotherm #RA: hold immunosuppressants #Hypovolemic hyponatremia: resolved #Anxiety: PRN Ativan #Lactic acidosis: resolved #Fevers: resolved. Blood cultures NGTD #Deconditioning: PT #Diet: regular #DVT ppx: Lovenox #Disp: ICU care for Vapotherm, abx. Case d/w Dr. Jackson Subjective: "head is congested" Objective: Vital Signs Temp Pulse Resp BP Pulse Ox 36.8 C 71 16 127/60 H 100 09/30/18 04:00 09/30/18 06:00 09/30/18 06:00 09/30/18 06:00 09/30/18 06:00 Microbiology 09/28/18 12:39 Gram Stain - Final Bronchial Washing - Other Laboratory Results 09/27/18 04:00 09/27/18 04:00 09/29/18 09/30/18 10/01/18 05:59 05:59 05:59 Intake Total 3213 3112 Output Total 200 1050 Balance 3013 2062 - Time Spent With Patient Time Spent with Patient: greater than 35 minutes Time Spent with Patient: Greater than 35 minutes spent on this patients care, greater than 50% of time spent counseling, educating, and coordinating care regarding the above mentioned plan. - Physical Exam Constitutional: other (fatigued) Eyes: PERRL Ears, Nose, Mouth, Throat: moist mucous membranes Cardiovascular: regular rate and rhythym Respiratory: other (decreased BS at bases) Gastrointestinal: normoactive bowel sounds Genitourinary: no bladder fullness Skin: warm Musculoskeletal: full muscle strength Neurologic: AAOx3, CN II-XII Intact Psychiatric: flat affect, other (anxious) ICD10 Worksheet Patient Problems: Problems Problem Status Onset Pneumonia Acute
[2018-09-30] MEDS: AZITHROMYCIN IV 500 MG in NS 250 ML IV SCH (08:49)
[2018-09-30] MEDS: ONDANSETRON 4 MG/2 ML VIAL IVP PRN (08:49)
[2018-09-30] MEDS: IPRATROPIUM/ALBUTEROL 3 ML DEYVIAL IH PRN (08:57)
[2018-09-30] MEDS: PANTOPRAZOLE SODIUM 40 MG TAB PO SCH (10:01)
[2018-09-30] MEDS ORDERED: NAPROXEN SODIUM 220 MG TAB PO PRN (10:30)
[2018-09-30] MEDS: SULFAMETHOX/TMP 800/160 MG 1 TAB PO SCH ×2 (12:21→18:02)
--- NOTE | 2018-09-30 14:25 | PDINTPN ---
Research & Insights Executive Progress Note Assessment/Plan: ASSESSMENT 68-year-old healthy female with rheumatoid arthritis on long standing methotrexate and recently started Enbrel presents with 10 days of increasing URI symptoms and acute hypoxemic respiratory failure with bilateral pulmonary infiltrates. Drug reaction possible but less likely. Mycoplasma IgG and IgM both positive as well as clinical picture consistent with disease. Respiratory PCR negative however per ID this is often running correctly and results and false negatives. # acute hypoxemic respiratory failure. Requiring high-flow nasal cannula # mycoplasma pneumonia- Status post bronchoscopy with BAL 09/29/2018. Unable to do transbronchial biopsies due to severe hypoxemic respiratory and high oxygen requirements. BAL fluid sent for PJP DFA, cytology for silver stain, mycoplasma PCR, AFB, fungal, and bacterial cultures. DFA and silver stain negative for PJP. Clinical picture is not consistent with drug reaction # rheumatoid arthritis on methotrexate and Enbrel # fevers # lactic acidosis, secondary to dehydration resolved PLAN # repeat mycoplasma respiratory [facility] Order placed # already received adequate antibiotic course for mycoplasma pneumonia 3 days of Levaquin plus 1.5 g of azithromycin # stop all antibiotics # decrease prednisone to 40 will rapidly taper to 10 mg to follow up with rural carrier associate. # case discussed with patient's primary rural carrier associate on 08/30/2018 who agrees with current plan and thinks primary rheumatologic related lung disease is highly unlikely. I will touch base again with him # continue to hold methotrexate and Enbrel # steroids will also treat any atypical drug induced pneumonitis # supplemental oxygen, wean as tolerated # restart lovenox. LABS and MICRO 09/29/18 BAL NGTD. Silver stain and PJP DFA negative. Non cellular BAL abundant macrophages indicating adequate sample. Mycoplasma PCR still pending. Mycoplasma IgG and IgM negative. Mycoplasma pcr negative but per ID if assay was improved correctly performed false negative often results. IMAGING I reviewed interpreted patient's radiographic images well as formal radiology reads 09/27/2018 CT chest-diffuse patchy ground-glass opacifications. No nodules, no PE, no dense opacification 09/28/2018 chest x-ray with interval worsening of diffuse interstitial parenchymal opacification 09/29/2018 chest x-ray with slight worsening of diffuse interstitial and parenchymal opacification Software Engineering Analyst - Addy Vitale at [facility]. office [phone]. cell [phone] Subjective: Excellent interval improvement oxygenation respiratory status. Mycoplasma pneumoniae IgM and IgG positive. Still feeling ill but significantly better. No new fevers or vomiting. No leg swelling. No rash. No syncope. Objective: Vital Signs Temp Pulse Resp BP Pulse Ox 36.5 C 80 19 101/51 L 95 09/30/18 12:00 09/30/18 12:00 09/30/18 12:00 09/30/18 12:00 09/30/18 12:00 Microbiology 09/28/18 12:39 Gram Stain - Final Bronchial Washing - Other Laboratory Results 09/27/18 04:00 09/27/18 04:00 09/29/18 09/30/18 10/01/18 05:59 05:59 05:59 Intake Total 3213 3112 Output Total 200 1050 Balance 3013 2062 Physical Exam - Physical Exam General Appearance: alert, no apparent distress EENT: PERRL/EOMI, normal ENT inspection, other (Nasal cannula tube in place) Neck: non-tender, full range of motion Respiratory: chest non-tender, other (Bilateral rales, mild respiratory distress improved from yesterday) Cardiac/Chest: normal peripheral pulses, regular rate, rhythm, No edema, No gallop Abdomen: normal bowel sounds, non-tender Back: Normal inspection Skin: normal color, warm/dry, No cyanosis Extremities: normal range of motion, non-tender Neuro/Psych: no motor/sensory deficits, alert, normal mood/affect, oriented x 3 ICD10 Worksheet Patient Problems: Problems Problem Status Onset Pneumonia Acute
--- NOTE | 2018-09-30 17:13 | ASMTCMCOM ---
CM Note CM Note Notes: Pt making gains. No CM needs identified at this time. Pt will likely be discharged independently when medically stable. CM available if needs arise. Date Signed: 09/30/2018 05:13 PM Electronically Signed By:PB Fisher
[2018-09-30] MEDS ORDERED: predniSONE 20 MG TAB PO SCH (18:00)
[2018-09-30] MEDS: LORazepam 0.5 MG TAB PO PRN (21:14)
[2018-10-01] MEDS: SULFAMETHOX/TMP 800/160 MG 1 TAB PO SCH ×2 (00:12→05:49)
[2018-10-01] MEDS: ONDANSETRON DISINTEGRATING 4 MG TAB PO PRN ×2 (05:52→09:59)
[2018-10-01] MEDS: ENOXAPARIN 40 MG/0.4 ML SYR SC SCH (09:13)
[2018-10-01] MEDS: SENNOSIDES/DOCUSATE SODIUM TAB PO SCH ×2 (09:13→20:11)
[2018-10-01] MEDS: FAMOTIDINE 20 MG TAB PO SCH ×2 (09:13→17:32)
[2018-10-01] MEDS: predniSONE 20 MG TAB PO SCH (09:13)
[2018-10-01] MEDS: FOLIC ACID 1 MG TAB PO SCH (09:13)
--- NOTE | 2018-10-01 09:26 | HOSPPROG ---
Hospitalist Progress Note Assessment/Plan: #Severe sepsis: from Mycoplasma pneumonia #AHRF: -PNA vs pneumonitis. Mycoplasma IgM positive, but PCR negative. Received adequate treatment with Azithro -Vapotherm #RA: hold immunosuppressants #Nausea: may be related to Bactrim or constipation. #Constipation: bowel regimen #Hypovolemic hyponatremia: resolved #Anxiety: PRN Ativan #Lactic acidosis: resolved #Fevers: resolved. Blood cultures NGTD #Deconditioning: PT #Diet: regular #DVT ppx: Lovenox #Disp: ok for PCU Subjective: nauseated this morning. No BM x 1 week Objective: Vital Signs Temp Pulse Resp BP Pulse Ox 36.6 C 71 17 120/54 L 95 10/01/18 07:30 10/01/18 07:30 10/01/18 07:30 10/01/18 07:30 10/01/18 07:30 Microbiology 09/28/18 12:39 Gram Stain - Final Bronchial Washing - Other Laboratory Results 09/27/18 04:00 09/27/18 04:00 09/30/18 10/01/18 10/02/18 05:59 05:59 05:59 Intake Total 3112 2537 Output Total 1050 2375 Balance 2062 162 - Time Spent With Patient Time Spent with Patient: greater than 35 minutes Time Spent with Patient: Greater than 35 minutes spent on this patients care, greater than 50% of time spent counseling, educating, and coordinating care regarding the above mentioned plan. - Physical Exam Constitutional: no apparent distress Ears, Nose, Mouth, Throat: moist mucous membranes Cardiovascular: regular rate and rhythym Respiratory: other (decreased BS at bases) Gastrointestinal: normoactive bowel sounds, soft, non-tender abdomen, No tenderness, No rebound, No distension Genitourinary: no bladder fullness Skin: warm Musculoskeletal: full muscle strength Neurologic: AAOx3, CN II-XII Intact Psychiatric: flat affect ICD10 Worksheet Patient Problems: Problems Problem Status Onset Pneumonia Acute
--- NOTE | 2018-10-01 09:43 | PDINTPN ---
Rn Telephone Triage Progress Note Assessment/Plan: ASSESSMENT 68-year-old healthy female with rheumatoid arthritis on long standing methotrexate and recently started Enbrel presents with 10 days of increasing URI symptoms and acute hypoxemic respiratory failure with bilateral pulmonary infiltrates. Mycoplasma IgG and IgM both positive as well as clinical picture consistent with disease. Respiratory PCR negative however per ID this is often running correctly and results and false negatives. Drug reaction possible but less likely. # acute hypoxemic respiratory failure. Requiring high-flow nasal cannula. Now improving # mycoplasma pneumonia- Status post bronchoscopy with BAL 09/29/2018. Unable to do transbronchial biopsies due to severe hypoxemic respiratory and high oxygen requirements. BAL fluid sent for PJP DFA, cytology for silver stain, mycoplasma PCR, AFB, fungal, and bacterial cultures. DFA and silver stain negative for PJP. Clinical picture is not consistent with drug reaction # rheumatoid arthritis on methotrexate and Enbrel # fevers # lactic acidosis, secondary to dehydration resolved PLAN # repeat mycoplasma respiratory [facility] Order placed # already received adequate antibiotic course for mycoplasma pneumonia 3 days of Levaquin plus 1.5 g of azithromycin # abx stopped 09/30/18 # Prednisone 40, will rapidly taper to 10-15 mg to follow up with paratransit operator. # case discussed with patient's primary paratransit operator on 08/30/2018 who agrees with current plan and thinks primary rheumatologic related lung disease is highly unlikely. I will touch base again with again today # continue to hold methotrexate and Enbrel # steroids will also treat any atypical drug induced pneumonitis # supplemental oxygen, wean as tolerated. Will likely need supplemental oxygen at discharge # lovenox # CXR PA and lat today # okay for PCU/medsurg w pulse ox LABS and MICRO 09/29/18 BAL NGTD. Silver stain and PJP DFA negative. Non cellular BAL abundant macrophages indicating adequate sample. Mycoplasma PCR still pending. Mycoplasma IgG and IgM negative. Mycoplasma pcr negative but per ID if assay was improved correctly performed false negative often results. IMAGING I reviewed interpreted patient's radiographic images well as formal radiology reads 09/27/2018 CT chest-diffuse patchy ground-glass opacifications. No nodules, no PE, no dense opacification 09/28/2018 chest x-ray with interval worsening of diffuse interstitial parenchymal opacification 09/29/2018 chest x-ray with slight worsening of diffuse interstitial and parenchymal opacification Doctor Of Naturopathic Medicine - Addy Vitale at [facility]. office [phone]. cell [phone] 10/01/18 09:43 Subjective: Supple yesterday. Still some shortness of breath is improving. No fevers. Still with headache. No nausea or vomiting. No syncope, no leg swelling. Objective: Vital Signs Temp Pulse Resp BP Pulse Ox 36.6 C 71 17 120/54 L 95 10/01/18 07:30 10/01/18 07:30 10/01/18 07:30 10/01/18 07:30 10/01/18 07:30 Microbiology 09/28/18 12:39 Gram Stain - Final Bronchial Washing - Other Laboratory Results 09/27/18 04:00 09/27/18 04:00 09/30/18 10/01/18 10/02/18 05:59 05:59 05:59 Intake Total 3112 2537 Output Total 1050 2375 Balance 2062 162 Physical Exam - Physical Exam General Appearance: alert, no apparent distress EENT: PERRL/EOMI, normal ENT inspection Neck: non-tender, full range of motion Respiratory: rales, No respiratory distress, No accessory muscle use Cardiac/Chest: normal peripheral pulses, regular rate, rhythm, No edema Abdomen: normal bowel sounds, non-tender Skin: normal color, warm/dry, No cyanosis Extremities: normal range of motion, non-tender Neuro/Psych: no motor/sensory deficits, alert, normal mood/affect, oriented x 3 ICD10 Worksheet Patient Problems: Problems Problem Status Onset Pneumonia Acute
[2018-10-01] MEDS: ACETAMINOPHEN 325 MG TAB PO PRN (16:04)
[2018-10-02] MEDS: ACETAMINOPHEN 325 MG TAB PO PRN ×2 (03:29→14:34)
[2018-10-02 07:39] VITALS: BP 128/63
[2018-10-02] MEDS: FOLIC ACID 1 MG TAB PO SCH (08:30)
[2018-10-02] MEDS: SENNOSIDES/DOCUSATE SODIUM TAB PO SCH (08:30)
[2018-10-02] MEDS: FAMOTIDINE 20 MG TAB PO SCH (08:30)
[2018-10-02] MEDS: ENOXAPARIN 40 MG/0.4 ML SYR SC SCH (08:31)
[2018-10-02] MEDS: predniSONE 20 MG TAB PO SCH (08:31)
--- NOTE | 2018-10-02 08:44 | PDHOMEO2F ---
Home Oxygen Face to Face Home Orders: I certify that a physician or a nurse practitioner or physician's sales assistant has had a [id number] encounter with this patient on the date of this order due to the diagnosis listed, which relates to the primary reason the patient requires home oxygen. Alternative treatments have been tried, or considered, and deemed ineffective. It is anticipated that supplemental oxygen will result in improvement with treatment. Home oxygen qualifying diagnosis: acute hypoxic resp failure Home oxygen secondary diagnosis: Mycoplasma pneumonia SpO2 on room air (%): 84 Frequency of home oxygen needed: with activity Home oxygen liters per minute: 2 Home oxygen delivery device: nasal cannula Concentrator: Yes E-tanks for mobility and back up: Yes If ordering portable O2, is the patient mobile in the home?: Yes I certify that, based on these findings, the home oxygen is medically necessary for this patient for the following length of time. Length of time home oxygen needed: 99 years
--- NOTE | 2018-10-02 11:26 | PDHOMEO2F ---
Home Oxygen Face to Face Home Orders: I certify that a physician or a nurse practitioner or physician's pediatric medical assistant has had a [id number] encounter with this patient on the date of this order due to the diagnosis listed, which relates to the primary reason the patient requires home oxygen. Alternative treatments have been tried, or considered, and deemed ineffective. It is anticipated that supplemental oxygen will result in improvement with treatment. Home oxygen qualifying diagnosis: Hypoxemic resp failure, now chronic Home oxygen secondary diagnosis: PNA SpO2 on room air (%): 87 Frequency of home oxygen needed: continuous (desaturated to 87 RA with rest, 84 % with exertion; 2L during day), during sleep (desaturated to 84% with sleep; required 4L to maintain sats >90%) Home oxygen liters per minute: 2 Home oxygen delivery device: nasal cannula Concentrator: Yes E-tanks for mobility and back up: Yes If ordering portable O2, is the patient mobile in the home?: Yes I certify that, based on these findings, the home oxygen is medically necessary for this patient for the following length of time. Length of time home oxygen needed: 99 years
--- NOTE | 2018-10-02 13:39 | GDS ---
DISCHARGE DIAGNOSES: 1. Acute hypoxemic respiratory failure. 2. Mycoplasma pneumonia. 3. Rheumatoid arthritis on immunosuppression. 4. Fevers. 5. Lactic acidosis. 6. Constipation. 7. Hypovolemic hyponatremia. 8. Deconditioning. HISTORY OF PRESENT ILLNESS: A 68-year-old female with rheumatoid arthritis on immunosuppression, pre senting with several days of shortness of breath. This was associated with fevers, chills, and nonpr oductive cough. She had associated vomiting and loose stools. She went to her PCP who prescribed Au gmentin for sinusitis, but symptoms progressed. She presented to the ER and oxygen saturation was 79 %. HOSPITAL COURSE BY PROBLEM: 1. Acute hypoxemic respiratory failure, secondary to mycoplasma pneumonia: She received appropriate treatment. CT-A was negative for pulmonary embolism. She had high oxygen requirements warranting V apotherm. She is now stable on 2 to 4 L. She does desat at night, thus recommend oxygen 24/7, espec ially since she is at altitude in [place]. She was started on a steroid taper. She will continue 20 mg for 2 more days and then 10 until she follows up with her carton stapler. 2. Rheumatoid arthritis: She is to hold her immunosuppressants. Followup up with her PCP. 3. Constipation: Resolved with laxative. 4. Hypovolemic hyponatremia: Resolved with IV fluids. 5. Lactic acidosis due to dehydration: Resolved. 6. Fevers due to pneumonia: Blood cultures remained negative. 7. Patient is stable for discharge home with her . Home oxygen arranged. FOLLOW UP: 1. Her primary carton stapler. 2. Her primary care physician. PHYSICAL EXAMINATION: VITAL SIGNS: Today, temperature 36.8, blood pressure is 128/63, heart rate in the 60s, respirations 12, 87% on room air, 93 on 2 L. GENERAL: She appears brighter today. No acu te distress. HEENT: PERRLA. Moist mucous membranes. CV: Regular rate and rhythm. LUNGS: Dimini shed, but no crackles or rhonchi. ABDOMEN: Soft, nontender, nondistended. Positive bowel sounds. : No Souza. MUSCULOSKELETAL: 5/5 upper and lower extremity strength. NEURO: 2 through 12 intac t. PSYCH: Alert and oriented x3. Flat affect Time spent on discharge greater than 30 minutes at bedside counseling patient on medications, followu p, discussing case with Dr. Jackson. /[id number]/MODL
--- NOTE | 2018-10-02 14:25 | ASMTLACE ---
LACE Length of stay for Answers: 4-6 days current admission Acuity / Level of Answers: Yes Care: Did the patient have an inpatient admission? Comorbidities - select Answers: Other Notes: RA all that apply # of Emergency department Answers: 1-2 visits in the last 6 months Social determinants Answers: Mental health diagnosis (anxiety, depression, pers onality disorders, etc.) Score: 12 Date Signed: 09/27/2018 09:15 AM Electronically Signed By:Amy Ren LCSW
--- NOTE | 2018-10-02 14:29 | ASDISCHSUM ---
Discharge Information Plan Status:Home with No Needs Medically Cleared to Leave:10/01/2018 Discharge Date:10/01/2018 CM D/C Disposition:Home, Routine, Self-Care ADT D/C Disposition:Home, Routine, Self-Care Projected Discharge Date:10/02/2018 03:00 PM Transportation at D/C:Family Discharge Delay Reason: Follow-Up Date:10/02/2018 03:00 PM Discharge Slot:2 - 12:01 pm - 18:00 pm Final Diagnosis:PNA, Severe sepsis, Hypoxic respiratory failure Placement Information Patient Contact Information Contact Name:JOE Relationship: Address:[address] Work Phone: City:[facility] Phone: [facility] Code:[place] [address] Email: Financial Information Financial Class:Medicare Primary Plan Desc:MEDICARE INPATIENT Primary Plan Number:[id number] Secondary Plan Desc:JONATHAN PPO Secondary Plan Number:[id number] Assessment Information [facility] KAYLA Progress Note CM Note KAYLA Note Notes: 68yo female admitted for SOB, PNA, Severe sepsis, Hypoxic respiratory failure. She has a Hx of RA and Anxiety. She lives with her in [place]. CM not anticipating that patient will have discharge needs. Date Signed: 09/27/2018 09:13 AM Electronically Signed By:Amy Ren LCSW LACE LACE Length of stay for Answers: 4-6 days current admission Acuity / Level of Answers: Yes Care: Did the patient have an inpatient admission? Comorbidities - select Answers: Other Notes: RA all that apply # of Emergency department Answers: 1-2 visits in the last 6 months Social determinants Answers: Mental health diagnosis (anxiety, depression, pers onality disorders, etc.) Score: 12 Date Signed: 09/27/2018 09:15 AM Electronically Signed By:Amy Ren LCSW [facility] CM Progress Note CM Note CM Note Notes: Pt making gains. No CM needs identified at this time. Pt will likely be discharged independently when medically stable. CM available if needs arise. Date Signed: 09/30/2018 05:13 PM Electronically Signed By:PB Fisher Case Management Discharge Plan Note Case Management Discharge Discharge Order Complete? Answers: Yes Patient to Obtain Answers: via Family Medications Transportation Arranged Answers: Family/Friends Transport will Pick (Date 10/02/2018 03:00 PM & Time) Family Notified Answers: Yes Notes: Family to transport Discharge Comments Notes: Patient has been discharged home with . No discharge needs . Date Signed: 10/02/2018 02:28 PM Electronically Signed By:Amy Ren LCSW Intervention Information
--- NOTE | 2018-10-06 12:24 | PQFORM ---
PHYSICIAN QUERY FORM Needs Your Response This query form is being sent to you to assure this patient record is coded properly. Please respond to the question below: VENTILATOR SPECIALIST QUESTION: Dear Dr. Real, In reviewing this patients medical record, it is noted that the patient held the diagnosis of "Severe Sepsis." Patient presented to ER with shortness of breath and fever. Noted in ER report "patient meets SIRS criteria because of fever, heart rate and respiratory rate." In the H&P patient was diagnosed with "severe sepsis with elevated heart rate, tachypnea, fever and elevated lactate. " Medical Necessity note states "ongoing treatment of severe sepsis." Also noted in the Hospitalist Progress notes dated 09/27-10/01 patient held the diagnosis of "severe sepsis." After study, should the diagnosis of "severe sepsis" be included in the Discharge Summary? ___x__ Yes No Clinically Undetermined Other (please specify) Thank you DAMEON Wright HIM/Coding Dept. [phone] INSTRUCTIONS FOR RESPONSE: Answer question by clicking on the "Edit Document" button. Move cursor to area below the stars. When complete, hit "Save." Click on the "Sign" button, then click "Sign" again. Type in your PIN and hit "Enter." GULSHAND
--- NOTE | 2018-10-12 12:17 | BVPULMO ---
[facility]- Pulmonology Patient Name: Hugo Coulter Procedure Date: 09/28/2018 10:34 AM Patient Type: Inpatient Attending MD/ER Physician: Gabe Jackson , Procedure: Bronchoscopy Indications: Interstitial lung disease Providers: Gabe Jackson Medicines: Lidocaine 1% applied to cords 4 mL, Lidocaine 1% applied to nares 4 mL, Lidocai ne 1% applied to the tracheobronchial tree 11 mL, Lidocaine 2% Nebulizer 3 mL, Fentan yl 100 mcg IV, Midazolam 2 mg IV Complications: Hypoxia Procedure: After informed consent, a time out was performed. N95 masks were worn, and the procedure was done in a negative pressure room. The patient was given appropria te topical anesthesia and intravenous sedation. The fiberopic bronchoscope was pas sed via a bite block orally into the larynx and subsequently into the lower trachea bronchial tree. Throughout the procedure, the patient's blood pressure, pulse, and oxygen saturations were monitored continuously. The Bronchoscope (Video) was introduced through the mouth and advanced to the tracheobronchial tree. The procedure was accomplished with moderate difficulty due to the patient's respir atory instability (respiratory failure). Successful completion of the procedure was a ided by increasing supplemental oxygen. Moderate Sedation: Moderate (conscious) sedation was administered by the endoscopy nurse and super vised by the endoscopist. The patient's oxygen saturation, heart rate, blood pressure and response to care were monitored. Total physician intraservice time was 20 minut es. Moderate (conscious) sedation was administered by the endoscopy nurse and super vised by the endoscopist. The following parameters were monitored: oxygen saturation, heart rate, blood pressure, respiratory rate, EKG, adequacy of pulmonary ventilation, and response to care. Total physician intraservice time was 20 min utes. Moderate (conscious) sedation was administered by the endoscopy nurse and super vised by the endoscopist. The patient's oxygen saturation, heart rate, blood pressure and response to care were monitored. Findings: Nasal passageway: The bilateral nasal passageway shows turbinate hypertrophy. Bilateral Lung Abnormalities: Erythema was found throughout the tracheobronchia l tree. Lamy, frothy secretions were found throughout the tracheobronchial tree. Bronchoalveolar lavage was performed in the lingula of the lung and sent for ce ll count, bacterial culture, viral smears & culture, and fungal & AFB analysis and cytology and PJP PCR, PJP DFA. 100 mL of fluid were instilled. 30 mL were retur matthew. The return was blood-tinged and cloudy. There were no mucoid plugs in the retur n fluid. Post Op Diagnosis: - Interstitial lung disease - Bilateral nasal passageway shows turbinate hypertrophy. - Erythema was present throughout the tracheobronchial tree. - Lamy, frothy secretions were found throughout the tracheobronchial tree. - Bronchoalveolar lavage was performed. Estimated Blood Loss: Estimated blood loss: none. Recommendation: - Return patient to hospital mane for ongoing care. - Await BAL, cytology and lab results. - continue hospital treatment Attending Participation: I personally performed the entire procedure. Manuel.Gabe ROTHMAN Gabe Jackson, 09/28/2018 12:25:16 PM This report has been signed electronicallySamuel Manuel Number of Addenda: 0 Note Initiated On: 09/28/2018 10:34 AM [email or web address]
== END 2018-10-02 14:43 | disposition home or self-care (01) | DRG 853 ==
LOC: F2W 20:26 → F2N 09-28 15:06 → F3E 10-01 16:40
PROVIDERS: ADMIT Internal Medicine; ATTEND Internal Medicine
PROC: 0B9M8ZX Drainage of Bilateral Lungs, Via Natural or Artificial Opening Endoscopic, Diagnostic (ICD-10-PCS; principal; 2018-09-28 11:15)
DX: A41.89 Other specified sepsis (principal); J15.7 Pneumonia due to Mycoplasma pneumoniae; J96.01 Acute respiratory failure with hypoxia; E87.2 Acidosis; E87.1 Hypo-osmolality and hyponatremia; E86.0 Dehydration; R65.20 Severe sepsis without septic shock; M06.9 Rheumatoid arthritis, unspecified; K59.00 Constipation, unspecified; E86.1 Hypovolemia
CPT/HCPCS: 86738-90; 87449-90; 96365; 96366; J0171; J0456; J0696; J1200; J1650; J1956; J2250; J2405; J2920; J3010; J7512; J7613; Q9967

== ENCOUNTER → 2018-11-07 | Outpatient (CLI) | payer OTHER | LOC: FIMAGING 08:48 | PROVIDERS: ATTEND Internal Medicine | DX: Z12.31 Encounter for screening mammogram for malignant neoplasm of breast (principal); Z80.3 Family history of malignant neoplasm of breast ==